=== PATIENT | male | born 1935 | race Two or more races ===

== ENCOUNTER 2021-04-19 17:02 | Emergency (ER) | payer OTHER ==
[~2021-04-19] VITALS: Ht 170.2 cm; Wt 56.7 kg
[2021-04-19] MEDS ORDERED: TOPROL XL25 M1 (18:14)
[2021-04-19] MEDS ORDERED: RAMIPRIL5 MG (18:14)
[2021-04-19] MEDS ORDERED: ZESTRIL20 MG (18:14)
== END 2021-04-19 22:36 | disposition home or self-care (01) ==
LOC: ER 17:02
DX: S60.211A Contusion of right wrist, initial encounter (principal); M53.3 Sacrococcygeal disorders, not elsewhere classified; S00.03XA Contusion of scalp, initial encounter; Y04.2XXA Assault by strike against or bumped into by another person, initial encounter; Y93.89 Activity, other specified; Y92.89 Other specified places as the place of occurrence of the external cause; Y99.8 Other external cause status; I10 Essential (primary) hypertension